=== PATIENT | female | born 1970 | race Caucasian/White ===

== ENCOUNTER → 2017-03-14 | Outpatient (CLI) | payer OTHER | LOC: KOH-I 14:44 | DX: M54.16 Radiculopathy, lumbar region (principal); M51.36 Other intervertebral disc degeneration, lumbar region | CPT/HCPCS: 72100 ==

== ENCOUNTER → 2017-07-15 | Outpatient (CLI) | payer OTHER ==
[2017-07-15 13:49] LABS: HEMOGLOBIN 14.9 gm/dl (12.3-15.3); RED BLOOD COUNT 4.78 M/UL (4.00-5.10)
== END ==
LOC: LAB 12:42
PROVIDERS: Internal Medicine Cardiovascular Disease
DX: E78.5 Hyperlipidemia, unspecified (principal); I25.119 Atherosclerotic heart disease of native coronary artery with unspecified angina pectoris; T73.3XXA Exhaustion due to excessive exertion, initial encounter
CPT/HCPCS: 36415; 80053; 80061; 84439; 84443; 85025

== ENCOUNTER → 2020-11-21 | Outpatient (CLI) | payer OTHER ==
[~2020-11-21] MED LIST: ASMANEX HFA13 G1 INH; BACTROBAN OINT22 GM EXT; BENZONATATE200 MG PO; BUPROPION XL300 MG PO; BUSPAR 10MG10 MG PO; CELEXA20 MG PO; CHLORASEPTIC SPRAY PO; CLEOCIN HCL300 MG PO; DOTTI1 EAC1 TOP; IMITREX100 MG PO; LINZESS145 MCG PO; LORTAB 7.5-3251 EACH PO; MINIVELLE1 EAC1 TD; NEURONTIN 300300 MG PO; NORVASC2.5 MG PO; NURTEC ODT75 MG SL; PEPCID20 MG PO; PHENERGAN 25 MG25 M1 PO; PREDNISONE10 MG PO; PROTONIX40 MG PO; RANEXA1000 MG PO; RELPAX40 MG PO; ST. JOSEPH ASPI81 M1 PO; TAGAMET HB200 MG PO; TOPAMAX50 MG PO; TYLENOL 325MG325 MG PO; WELLBUTRIN 100100 MG PO; WELLBUTRIN XL300 M1 PO; WELLBUTRIN XL300 MG PO; ZANTAC150 MG PO
[2020-11-21 12:03] LABS: HEMOGLOBIN 13.7 gm/dl (12.3-15.3); RED BLOOD COUNT 4.2 M/UL (4.00-5.10); WHITE BLOOD COUNT 5.1 K/UL (4.5-11.0)
[2020-11-21 15:17] LABS: BUN/CREATININE RATIO 14 (0-10)
== END ==
LOC: RAD 11:15
PROVIDERS: Nurse Practitioner Family
DX: I25.118 Atherosclerotic heart disease of native coronary artery with other forms of angina pectoris (principal); E78.5 Hyperlipidemia, unspecified; R07.1 Chest pain on breathing; R06.02 Shortness of breath
CPT/HCPCS: 36415; 71046; 80053; 80061; 85025; 85379

== ENCOUNTER → 2020-12-25 | Day surgery (SDC) | payer OTHER | END | disposition home or self-care (01) | LOC: OR 07:39 | DX: K31.9 Disease of stomach and duodenum, unspecified (principal); K21.00 Gastro-esophageal reflux disease with esophagitis, without bleeding; J39.2 Other diseases of pharynx; K58.1 Irritable bowel syndrome with constipation; G43.909 Migraine, unspecified, not intractable, without status migrainosus; I25.10 Atherosclerotic heart disease of native coronary artery without angina pectoris; G62.9 Polyneuropathy, unspecified; I25.2 Old myocardial infarction; F31.9 Bipolar disorder, unspecified; M19.90 Unspecified osteoarthritis, unspecified site; M35.00 Sjogren syndrome, unspecified; Z91.041 Radiographic dye allergy status; Z88.8 Allergy status to other drugs, medicaments and biological substances; Z79.899 Other long term (current) drug therapy; Z79.82 Long term (current) use of aspirin | CPT/HCPCS: 80076; 82150; 83690; J2001; J2704; J7040 ==

== ENCOUNTER → 2021-03-13 | Outpatient (CLI) | payer OTHER | LOC: KOH-I 10:30 | DX: D37.05 Neoplasm of uncertain behavior of pharynx (principal) | CPT/HCPCS: 70540 ==

== ENCOUNTER → 2021-03-20 | Outpatient (CLI) | payer OTHER | LOC: OPSV2 10:00 | DX: Z01.810 Encounter for preprocedural cardiovascular examination (principal); Z01.818 Encounter for other preprocedural examination; R05 Cough | CPT/HCPCS: 71046; 93005 ==

== ENCOUNTER → 2021-03-23 | Day surgery (SDC) | payer OTHER | END | disposition home or self-care (01) | LOC: OR 06:48 | DX: J39.2 Other diseases of pharynx (principal); J35.8 Other chronic diseases of tonsils and adenoids; K21.9 Gastro-esophageal reflux disease without esophagitis; I25.10 Atherosclerotic heart disease of native coronary artery without angina pectoris; M79.7 Fibromyalgia; I25.2 Old myocardial infarction; M19.90 Unspecified osteoarthritis, unspecified site; Z87.891 Personal history of nicotine dependence; Z95.5 Presence of coronary angioplasty implant and graft; Z79.82 Long term (current) use of aspirin | CPT/HCPCS: J0690; J1100; J2001; J2250; J2370; J2405; J2704; J2710; J3010; J7120 ==

== ENCOUNTER → 2021-03-31 | Outpatient (CLI) | payer OTHER | LOC: EXRD 13:12 | DX: B39.9 Histoplasmosis, unspecified (principal); R05 Cough | CPT/HCPCS: 71046 ==

== ENCOUNTER → 2021-04-29 | Outpatient (CLI) | payer OTHER | LOC: KOH-I 13:59 | DX: M54.2 Cervicalgia (principal); M47.812 Spondylosis without myelopathy or radiculopathy, cervical region; Z98.1 Arthrodesis status | CPT/HCPCS: 72040 ==

== ENCOUNTER 2021-06-22 12:39 | Emergency (ER) | payer OTHER ==
[~2021-06-22] VITALS: Ht 160 cm; Wt 50.8 kg
== END 2021-06-22 18:20 | disposition home or self-care (01) ==
LOC: ER1 12:39
DX: Z23 Encounter for immunization (principal); U07.1 COVID-19; I20.9 Angina pectoris, unspecified; Z90.49 Acquired absence of other specified parts of digestive tract; Z90.710 Acquired absence of both cervix and uterus; Z88.2 Allergy status to sulfonamides; Z91.041 Radiographic dye allergy status
CPT/HCPCS: 99284; M0243

== ENCOUNTER → 2021-06-29 | Outpatient (CLI) | payer OTHER | LOC: LAB 09:55 | DX: M19.90 Unspecified osteoarthritis, unspecified site (principal); M25.50 Pain in unspecified joint; R76.8 Other specified abnormal immunological findings in serum; D89.9 Disorder involving the immune mechanism, unspecified | CPT/HCPCS: 36415; 85652; 86140 ==

== ENCOUNTER → 2021-07-03 | Outpatient (CLI) | payer OTHER | LOC: US 13:30 → MAMO 13:40 | DX: N63.10 Unspecified lump in the right breast, unspecified quadrant (principal) | CPT/HCPCS: 76641-RT; 77066; G0279 ==

== ENCOUNTER → 2021-09-01 | Outpatient (CLI) | payer OTHER | LOC: EMI 14:18 | DX: G44.89 Other headache syndrome (principal); R41.3 Other amnesia; G43.909 Migraine, unspecified, not intractable, without status migrainosus; M50.30 Other cervical disc degeneration, unspecified cervical region; M47.812 Spondylosis without myelopathy or radiculopathy, cervical region; M50.21 Other cervical disc displacement, high cervical region; Z98.1 Arthrodesis status | CPT/HCPCS: 70551; 72141 ==

== ENCOUNTER → 2021-12-31 | Outpatient (CLI) | payer OTHER | LOC: MAMO 13:00 | DX: N60.11 Diffuse cystic mastopathy of right breast (principal); R92.8 Other abnormal and inconclusive findings on diagnostic imaging of breast | CPT/HCPCS: 76642-RT; 77065; G0279 ==

== ENCOUNTER 2022-01-28 13:22 | Emergency (ER) | payer OTHER ==
[2022-01-28 15:00] LABS: HEMOGLOBIN 14.7 gm/dl (12.3-15.3); RED BLOOD COUNT 4.51 M/UL (4.00-5.10); WHITE BLOOD COUNT 5.2 K/UL (4.5-11.0)
[2022-02-01] MEDS ORDERED: QULIPTA60 MG PO (06:40)
[2022-02-01] MEDS ORDERED: CRESTOR5 MG PO (06:41)
[2022-02-01] MEDS ORDERED: PRILOSEC OTC20 MG PO (06:42)
[2022-02-01] MEDS ORDERED: LEXAPRO5 MG PO (06:42)
== END 2022-01-28 17:38 | disposition home or self-care (01) ==
LOC: ER1 13:22
PROVIDERS: Emergency Medicine
DX: R13.10 Dysphagia, unspecified (principal); I25.10 Atherosclerotic heart disease of native coronary artery without angina pectoris; Z88.8 Allergy status to other drugs, medicaments and biological substances; Z91.048 Other nonmedicinal substance allergy status
CPT/HCPCS: 70490; 71250; 80053; 82550; 82553; 84484; 85025; 93005; 96374; 96375; 99284; J2270; J2405

== ENCOUNTER → 2022-02-01 | Day surgery (SDC) | payer OTHER ==
[~2022-02-01] MED LIST changes: +CRESTOR5 MG PO; +LEXAPRO5 MG PO; +PRILOSEC OTC20 MG PO; +QULIPTA60 MG PO
== END | disposition home or self-care (01) ==
LOC: OR 06:02
DX: K29.70 Gastritis, unspecified, without bleeding (principal); T18.108A Unspecified foreign body in esophagus causing other injury, initial encounter; I25.10 Atherosclerotic heart disease of native coronary artery without angina pectoris; K21.9 Gastro-esophageal reflux disease without esophagitis; F41.9 Anxiety disorder, unspecified; F32.A Depression, unspecified; Z20.822 Contact with and (suspected) exposure to COVID-19
CPT/HCPCS: J2001; J2704; J7120

== ENCOUNTER → 2022-07-07 | Outpatient (CLI) | payer OTHER | LOC: MAMO 13:03 | DX: N63.15 Unspecified lump in the right breast, overlapping quadrants (principal); R92.0 Mammographic microcalcification found on diagnostic imaging of breast | CPT/HCPCS: 76642-RT; 77066; G0279 ==